=== PATIENT | female | born 1980 | race African-American/Black ===

== ENCOUNTER 2023-10-21 05:50 | Emergency (ER) | payer BC, SELFPAY ==
[2023-10-21] VITALS (15 sets, daily range): BP systolic 109–154; BP diastolic 70–105
[2023-10-21 05:58] LABS: Glucose - Point of Care 112 mg/dl (70-99)
[2023-10-21] MEDS: NSS 1000 IV (06:45)
[2023-10-21 06:51] LABS: % Basophils 0.6 % (0-2); % Eosinophils 1.2 % (0-6); % Immature Granulocytes 0.2 % (0-0.5); % Lymphocytes 35.2 % (20.5-51.1); % Monocytes 7.2 % (1.7-9.3); % Neutrophils 55.6 % (42.2-75.2); Absolute Eosinophils 0.1 10^3/uL (0-0.7); Absolute Lymphocytes 2.3 10^3/uL (1.2-3.4); Absolute Monocytes 0.5 10^3/uL (0.1-0.6); Absolute Neutrophils 3.7 10^3/uL (1.4-6.5); Hematocrit 38.7 % (37.0-47.0); Hemoglobin 12.6 g/dL (12.0-16.0); Mean Corp Hgb Conc. 32.6 g/dL (33.0-37.0); Mean Corpuscular Hgb 27.5 pg (27.0-31.0); Mean Corpuscular Volume 84.3 fL (81.0-99.0); Mean Platelet Volume 9.9 fL (7.4-10.4); Nucleated Red Blood Cells % 0 %; Platelet Count 271 10^3/uL (130-400); Red Blood Cell Count 4.59 10^6/uL (4.20-5.40); Red Cell Dist. Width 12.4 % (11.5-14.5); White Blood Cell Count 6.6 10^3/uL (4.8-10.8)
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
[2023-10-21 07:08] LABS: HCG, Serum Qualitative Screen Negative
[2023-10-21 07:09] LABS: ALT (SGPT) 23 U/L (0-35); AST (SGOT) 35 U/L (14-36); Albumin 4.9 g/dl (3.5-5.0); Alkaline Phosphatase 80 U/L (38-126); Blood Urea Nitrogen 12 mg/dl (7-17); Calcium 10.4 mg/dl (8.4-10.2); Carbon Dioxide 27 mmol/L (22-30); Chloride 101 mmol/L (98-107); Glucose 98 mg/dl (70-99); Potassium 4.1 mmol/L (3.5-5.1); Sodium 139 mmol/L (135-145); Total Bilirubin 0.6 mg/dl (0.2-1.3); Total Protein 8.2 g/dl (6.3-8.2); eGFR > 60.00
[2023-10-21 07:40] LABS: Depakane 24.5 ug/ml (50.0-120.0)
[2023-10-21] MEDS: DEPAKENE 750 MG PO (09:53)
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
== END 2023-10-21 12:59 | disposition home or self-care (01) ==
LOC: EMR 05:50
PROVIDERS: Student in an Organized Health Care Education/Training Program; EMERGENCY PHYSICIAN Emergency Medicine
DX: G40.909 Epilepsy, unspecified, not intractable, without status epilepticus (principal); Z87.820 Personal history of traumatic brain injury; Z91.410 Personal history of adult physical and sexual abuse; Z91.411 Personal history of adult psychological abuse
CPT/HCPCS: 99285; 96360; 70450; 71046; 72072; 72125; 73080; 73502; 73564; 80053; 80164; 80306; 80307; 82962; 84703; 85025; 90471; 90715; 93005; 96372

== ENCOUNTER 2023-10-21 18:48 | Emergency (ER) | payer BC, SELFPAY ==
[2023-10-21 18:56] VITALS: BP 148/97
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
[2023-10-21 19:55] VITALS: BP 155/98
[2023-10-21 20:17] VITALS: BP 155/98
[2023-10-21] MEDS: LET TOPICAL ANESTHETIC GEL 3 ML TOPICAL (20:52)
[2023-10-21] MEDS: ADACEL 0.5 ML IM (20:53)
[2023-10-21 21:07] VITALS: BP 140/111
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
[2023-10-21 22:56] VITALS: BP 120/81
[2023-10-21 23:20] LABS: Amphetamines Negative (Negative); Barbiturates Negative (Negative); Benzodiazepines Positive (Negative); Buprenorphine Negative (Negative); Cocaine Negative (Negative); Marijuana Negative (Negative); Methadone Negative (Negative); Methamphetamines Negative (Negative); Opiates Negative (Negative); Phencyclidine Negative (Negative); Tricyclic Antidepressants Negative (Negative)
[2023-10-22 00:20] LABS: Fentanyl, Urine Negative (Negative)
[2023-10-22] MEDS: TYLENOL 1000 MG PO (00:35)
[2023-10-22] MEDS: ATIVAN 1 MG PO ×2 (00:36→05:42)
[2023-10-22] MEDS: DEPAKENE 1000 MG PO (10:20)
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
[2023-10-22 11:38] VITALS: BP 141/100
[2023-10-22] MEDS: TYLENOL 650 MG PO (15:24)
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
[2023-10-22 22:10] VITALS: BP 171/103
[2023-10-22 23:32] VITALS: BP 154/101
[2023-10-22] MEDS: ATIVAN 1 MG IM (23:38)
[2023-10-23] MEDS: TYLENOL 650 MG PO (03:58)
[2023-10-23] MEDS: ATIVAN 2 MG IM (04:33)
--- NOTE | 2023-10-23 08:33 | EDRN ---
the pts sister Rosalia called this RN for an update on the pt, this RN confirmed with crisis and the provider that this RN was able to give Rosalia information, this RN updated the pts sister on the pts care status, this RN also spoke with crisis and
confirmed that the pts hearing was at 1100, the pt was compliant with this RN obtaining vital signs, the pt confirmed ordering breakfast, will continue to monitor the pt closely
[2023-10-23 08:35] VITALS: BP 115/81
--- NOTE | 2023-10-23 10:37 | ED.CRISIS ---
ED Crisis Note
ED Crisis Note
Assessment/Plan:
303 hearing pending for 11 AM today.
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
[2023-10-23] MEDS: ZYPREXA 7.5 MG PO (13:08)
[2023-10-23] MEDS: DEPAKOTE ER (24 HR RELEASE) 1000 MG PO (13:08)
[2023-10-23] MEDS: MOTRIN 600 MG PO (13:08)
[2023-10-23] MEDS: ATIVAN 1 MG PO (19:07)
== END 2023-10-23 20:30 ==
LOC: EMR 18:48
PROVIDERS: Emergency Medicine; EMERGENCY PHYSICIAN Emergency Medicine; OTHER PHYSICIAN Psychiatry & Neurology Psychiatry
DX: S40.211A Abrasion of right shoulder, initial encounter (principal); S50.311A Abrasion of right elbow, initial encounter; S70.311A Abrasion, right thigh, initial encounter; V88.8XXA Person injured in other specified noncollision transport accidents involving motor vehicle, nontraffic, initial encounter; F99 Mental disorder, not otherwise specified; Z23 Encounter for immunization
CPT/HCPCS: 70450; 71046; 72072; 72125; 73080; 73502; 80306; 80307; 90471; 90715; 93005; 96372; 99285